=== PATIENT | male | born 1995 | race African-American/Black ===

== ENCOUNTER 2018-12-28 17:19 | Inpatient (IN) ==
[2018-12-28] MEDS ORDERED: cefTRIAXone 1,000 MG in Water for inj. (sterile) 20 ML 10 ML IVP ONE (20:17)
[2018-12-28] MEDS ORDERED: Ketorolac 15 MG/ML VIAL IVP ONE (20:18)
--- NOTE | 2018-12-28 20:22 | Emergency Department Note ---
Disposition Clinical Impression: Swelling of lower leg, Leukocytosis Cellulitis Qualifiers: Site of cellulitis: extremity Site of cellulitis of extremity: lower extremity Laterality: left Qualified Code(s): L03.116 - Cellulitis of left lower limb Disposition: Admitted As Inpatient Condition: Fair Referrals: NONE,PCP [Primary Care Provider] - Forms: ED Satisfaction Letter Time of Disposition: 21:06 Extremity Problem HPI - General Chief complaint: ED Extremity Problem,Nontraumatic Stated complaint: LLE Swollen / Painful Time Seen by Provider: 12/28/18 20:02 Source: patient Mode of arrival: ambulatory Limitations: no limitations Nursing Notes Reviewed: Yes Vital Signs Reviewed: Yes - History of Present Illness HPI Narrative: 23-year-old otherwise healthy male patient for evaluation of left lower leg swelling concerns of infection. Patient states he left the hospital because they were not addressing his pain. Patient states he was admitted for 2 days. Notes injury to the left lower tremor he was bumping it on blessing beam on a flat bed. Patient noted swelling since then with erythema. Patient also noted some fevers. Patient denies history of IV drug use. Patient denies any other symptoms besides pain swelling and redness of left lower cavity. Neurovascularly intact. Patient can move his lower leg. States that he is not currently on any antibiotics. Pain Scale: 8 - Related Data Home Medications Medication Instructions Recorded Confirmed No Known Home Drugs 05/18/17 08/10/18 Allergies Allergy/AdvReac Type Severity Reaction Status Date / Time No Known Allergies Allergy Verified 07/10/17 17:49 All systems ED: reviewed and negative except as stated. Constitutional: Denies: fever Gastrointestinal: Denies: abdominal pain, nausea, vomiting Past Medical History - Past Medical History Source: patient Medical history: Reports: GERD Surgical history: Reports: orthopedic, other, tonsillectomy, other Psychiatric history: Reports: anxiety, bipolar, depression, other - Social History Smoking Status: Current every day smoker Smokeless Tobacco Status: No Alcohol use: Reports: none Drug use: Reports: none Physical Exam - General Limitations: no limitations General appearance: alert, in no apparent distress - Head Head exam: atraumatic, normocephalic, normal inspection - Eye Eye exam: Present: normal appearance, PERRL, EOMI - ENT ENT exam: normal exam - Neck Neck exam: Present: normal inspection - Chest Chest inspection: Present: normal inspection - Respiratory Respiratory exam: Present: normal lung sounds bilaterally - Cardiovascular Cardiovascular exam: Present: regular rate, normal rhythm, normal heart sounds - Abdominal Exam Abdominal exam: Present: soft, Non-Tender - Expanded Lower Extremity Exam Hip/Pelvis exam: Present: normal inspection, full ROM. Absent: tenderness Upper leg exam: Present: normal inspection, full ROM. Absent: tenderness Knee exam: Present: normal inspection, full ROM. Absent: tenderness Lower leg exam: Present: tenderness, swelling, erythema. Absent: crepitus Ankle exam: Present: tenderness, swelling Foot/toe exam: Present: normal inspection, tenderness, swelling Neurovascular/Tendon exam: Present: normal capillary refill, pulse deficit - Back Exam Back exam: Present: normal inspection - Neurological Exam Neurological exam: Present: alert - Skin Skin exam: Present: warm, dry, intact, normal color Course Course Narrative: Patient seen and examined. Patient does have radiology report documenting a CT of the left lower extremity with IV contrast which showed large amount of diffuse edema-like stranding and subcutaneous fat lower leg ankle and dorsum of the and full thickening of the skin anterior to level of the mid tibial diaphysis. There are no soft tissue abscesses gas or evidence of osteo-seen. We will attempt to gather further records from [facility]. Patient will require IV antibiotics admission. Basic labs and anti-inflammatories. - Reevaluation(s) Reevaluation #1: Patient's records reviewed. Patient does have CBC and lites lites ordered which showed a leukocytosis of 20,000 yesterday. Patient's lactate normal. Time: 21:05 Vital Signs Temperature 98.0 F 12/28/18 17:25 Pulse Rate 96 12/28/18 17:25 Respiratory Rate 18 12/28/18 17:25 Blood Pressure 127/78 12/28/18 17:25 O2 Sat by Pulse Oximetry 98 12/28/18 17:25 Temperature 98.0 F 12/28/18 17:25 Pulse Rate 96 12/28/18 17:25 Respiratory Rate 18 12/28/18 17:25 Blood Pressure 127/78 12/28/18 17:25 O2 Sat by Pulse Oximetry 98 12/28/18 17:25 Oxygen Delivery Oxygen Delivery Room Air Extremity Problem, Nontraumati - [facility] Narrative Medical decision making narrative: Patient presents for signs of infection of his left lower cavity. It had CT imaging report obtained recently which shows consistent severe cellulitis of left lower cavity with no soft tissue necrotizing infection. Patient also had labs which showed leukocytosis and concerns for infection. Patient on exam does clinically have cellulitis. Soft compartments. Patient was covered with broad-spectrum antibiotics. Patient did get blood cultures. Imaging of left lower britt many was not obtained in the ED. Patient also had a history of reported THE LOWER LEG WELL. PATIENT WAS TREATED WITH MULTIMODAL PAIN THERAPY IN THE ED. PATIENT BE ADMITTED TO THE HOSPITALIST FOR CONTINUED EVALUAT ION. - Lab Data Lab results reviewed: Yes I reviewed the patient's lab results. Result diagrams: 12/28/18 20:55 12/28/18 20:55 Lab Results 12/28/18 12/28/18 12/28/18 Range/Units 20:55 20:55 21:27 WBC 27.2 H (4.3-11.1) K/mcL RBC 4.38 (4.19-5.50) M/mcL Hgb 13.1 (12.9-16.9) g/dL Hct 40.2 (37.5-50.1) % MCV 91.8 (83.0-100.0) fL MCH 29.9 (28.0-33.3) pg MCHC 32.6 (31.6-35.5) g/dL RDW 13.3 (11.5-14.5) % Plt Count 341 (140-400) K/mcL MPV 8.8 L (9.4-12.4) fL Seg Neutrophils % 63.0 % Band Neutrophils % 19.0 H (0-4) % Lymphocytes % 10.0 % Monocytes % 7.0 % Eosinophils % 1.0 % Neutrophils # 22.3 H (1.6-8.9) K/mcL Lymphocytes # 2.7 (0.6-4.6) K/mcL Monocytes # 1.9 H (0.0-1.3) K/mcL Eosinophils # 0.3 (0.0-0.6) K/mcL Reactive Lymphocytes Present A (Not Present) Toxic Granulation Present A (Not Present) Platelet Estimate Normal (Normal) Sodium 139 (136-145) mEq/L Potassium 3.7 (3.5-5.1) mEq/L Chloride 103 (98-107) mEq/L Carbon Dioxide 28 (23-29) mEq/L BUN 8 (6-20) mg/dL Creatinine 0.90 (0.70-1.30) mg/dL Est GFR ( Amer) > 60 (> 60) Est GFR (Non-Af Amer) > 60 (> 60) BUN/Creatinine Ratio 9 (6-26) Glucose 112 H (70-105) mg/dL Calculated Osmolality 287 (280-300) Lactic Acid 1.4 (0.5-2.2) mmol/L Calcium 9.1 (8.6-10.3) mg/dL Total Bilirubin 0.3 (0.3-1.0) mg/dL AST 19 (13-39) Units/L ALT 20 (7-52) Units/L Alkaline Phosphatase 97 (34-104) Units/L Serum Total Protein 7.4 (6.4-8.9) g/dL Albumin 3.3 L (3.5-5.7) g/dL Globulin 4.1 H (2.4-3.5) g/dL Albumin/Globulin Ratio 0.8 L (1.1-2.2) - Radiology Data Radiology results reviewed: Yes I reviewed the patient's radiology results. S.B.A.Diana - S.Estella.AEren Situation: Demographics Background: Presenting Complaint Assessment: Vital Signs, Course and respsone to treatment, Patient/Family Exp ectation Recommendation: Barrier(s) to disposition, Recommendation based on pending studies, treatments, or consults S.B.A.RDavid Report Given to: Dr. Halle HendersonAEren Repor Time: 21:06 Attestation Statement - Attestation Attestation: I, Shalom Landeros DO, examined this patient [id number] and my medical decision-making was reviewed with Dr. Pradeep Puentes, Resident Physician. I agree with the documented findings, disposition and treatment plan as described except to the extent set forth below. I personally supervised and was present for the marcial/critical portions of the procedures completed by the resident documented below. Please see my progress notes for details.
[2018-12-28] MEDS ORDERED: 0.9 % Sodium Chloride 1,000 ML IVC ONE (21:03)
[2018-12-28 21:10] LABS: Hemoglobin 13.1 g/dL (12.9-16.9); Mean Platelet Volume 8.8 fL (9.4-12.4); Red Cell Distribution Width 13.3 % (11.5-14.5)
[2018-12-28 21:11] LABS: Hematocrit 40.2 % (37.5-50.1); Mean Corpuscular HGB Conc 32.6 g/dL (31.6-35.5); Mean Corpuscular Hemoglobin 29.9 pg (28.0-33.3); Mean Corpuscular Volume 91.8 fL (83.0-100.0); Platelet Count 341 K/mcL (140-400); Red Blood Count 4.38 M/mcL (4.19-5.50)
[2018-12-28] MEDS ORDERED: Piperacillin/Tazobactam 3.375 GM in Water for inj. (sterile) 20 ML 20 ML IVP ONE (21:20)
[2018-12-28] MEDS ORDERED: Piperacillin/Tazobactam 3.375 GM in 0.9 % Sodium Chloride Mini Bag 100 ML IVPB ONE (21:25)
[2018-12-28] MEDS ORDERED: Tdap (Boostrix) Vaccine 0.5 ML SYRINGE IM ONE (21:26)
[2018-12-28 21:27] LABS: Alanine Aminotransferase 20 Units/L (7-52); Albumin 3.3 g/dL (3.5-5.7); Albumin/Globulin Ratio 0.8 (1.1-2.2); Alkaline Phosphatase 97 Units/L (34-104); Aspartate Amino Transferase 19 Units/L (13-39); BUN/Creatinine Ratio 9 (6-26); Bilirubin,Total 0.3 mg/dL (0.3-1.0); Blood Urea Nitrogen 8 mg/dL (6-20); Calcium 9.1 mg/dL (8.6-10.3); Carbon Dioxide 28 mEq/L (23-29); Chloride 103 mEq/L (98-107); Globulin 4.1 g/dL (2.4-3.5); Glucose 112 mg/dL (70-105); Osmolality,Calculated 287 (280-300); Potassium 3.7 mEq/L (3.5-5.1); Sodium 139 mEq/L (136-145); Total Protein 7.4 g/dL (6.4-8.9); eGFR For Non-African Americans > 60 (> 60)
--- NOTE | 2018-12-28 21:30 | Emergency Department Note ---
Disposition Clinical Impression: Swelling of lower leg, Leukocytosis Cellulitis Qualifiers: Site of cellulitis: extremity Site of cellulitis of extremity: lower extremity Laterality: left Qualified Code(s): L03.116 - Cellulitis of left lower limb Disposition: Admitted As Inpatient Condition: Fair Referrals: NONE,PCP [Primary Care Provider] - Forms: ED Satisfaction Letter Time of Disposition: 21:38 General Adult HPI - General Chief complaint: ED Extremity Problem,Nontraumatic Stated complaint: LLE Swollen / Painful Time Seen by Provider: 12/28/18 20:02 Source: patient Mode of arrival: ambulatory Limitations: no limitations - History of Present Illness Pain Scale: 8 - Related Data Home Medications Medication Instructions Recorded Confirmed No Known Home Drugs 05/18/17 08/10/18 Allergies Allergy/AdvReac Type Severity Reaction Status Date / Time No Known Allergies Allergy Verified 07/10/17 17:49 Constitutional: Denies: fever Gastrointestinal: Denies: abdominal pain, nausea, vomiting Past Medical History - Past Medical History Medical history: Reports: GERD Surgical history: Reports: orthopedic, other, tonsillectomy, other Psychiatric history: Reports: anxiety, bipolar, depression, other - Social History Smoking Status: Current every day smoker Smokeless Tobacco Status: No Alcohol use: Reports: none Drug use: Reports: none Physical Exam - General Limitations: no limitations General appearance: alert, in no apparent distress Course Vital Signs Temperature 98.0 F 12/28/18 17:25 Pulse Rate 96 12/28/18 17:25 Respiratory Rate 18 12/28/18 17:25 Blood Pressure 127/78 12/28/18 17:25 O2 Sat by Pulse Oximetry 98 12/28/18 17:25 Temperature 98.0 F 12/28/18 17:25 Pulse Rate 96 12/28/18 17:25 Respiratory Rate 18 12/28/18 17:25 Blood Pressure 127/78 12/28/18 17:25 O2 Sat by Pulse Oximetry 98 12/28/18 17:25 Oxygen Delivery Oxygen Delivery Room Air Medical Decision Making - Lab Data Result diagrams: 12/28/18 20:55 12/28/18 20:55 Lab Results 12/28/18 12/28/18 12/28/18 Range/Units 20:55 20:55 21:27 WBC 27.2 H (4.3-11.1) K/mcL RBC 4.38 (4.19-5.50) M/mcL Hgb 13.1 (12.9-16.9) g/dL Hct 40.2 (37.5-50.1) % MCV 91.8 (83.0-100.0) fL MCH 29.9 (28.0-33.3) pg MCHC 32.6 (31.6-35.5) g/dL RDW 13.3 (11.5-14.5) % Plt Count 341 (140-400) K/mcL MPV 8.8 L (9.4-12.4) fL Seg Neutrophils % 63.0 % Band Neutrophils % 19.0 H (0-4) % Lymphocytes % 10.0 % Monocytes % 7.0 % Eosinophils % 1.0 % Neutrophils # 22.3 H (1.6-8.9) K/mcL Lymphocytes # 2.7 (0.6-4.6) K/mcL Monocytes # 1.9 H (0.0-1.3) K/mcL Eosinophils # 0.3 (0.0-0.6) K/mcL Reactive Lymphocytes Present A (Not Present) Toxic Granulation Present A (Not Present) Platelet Estimate Normal (Normal) Sodium 139 (136-145) mEq/L Potassium 3.7 (3.5-5.1) mEq/L Chloride 103 (98-107) mEq/L Carbon Dioxide 28 (23-29) mEq/L BUN 8 (6-20) mg/dL Creatinine 0.90 (0.70-1.30) mg/dL Est GFR ( Amer) > 60 (> 60) Est GFR (Non-Af Amer) > 60 (> 60) BUN/Creatinine Ratio 9 (6-26) Glucose 112 H (70-105) mg/dL Calculated Osmolality 287 (280-300) Lactic Acid 1.4 (0.5-2.2) mmol/L Calcium 9.1 (8.6-10.3) mg/dL Total Bilirubin 0.3 (0.3-1.0) mg/dL AST 19 (13-39) Units/L ALT 20 (7-52) Units/L Alkaline Phosphatase 97 (34-104) Units/L Serum Total Protein 7.4 (6.4-8.9) g/dL Albumin 3.3 L (3.5-5.7) g/dL Globulin 4.1 H (2.4-3.5) g/dL Albumin/Globulin Ratio 0.8 L (1.1-2.2) Attestation Statement - Attestation Attestation: I, Shalom Landeros DO, examined this patient [id number] and my medical decision-making was reviewed with Dr. Pradeep Puentes, Resident Physician. I agree with the documented findings, disposition and treatment plan as described except to the extent set forth below. I personally supervised and was present for the marcial/critical portions of the procedures completed by the resident documented below. Please see my progress notes for details. 23-year-old male presents emergency room after being an outside facility AGAINST MEDICAL ADVICE. Patient is admitted for cellulitis secondary to an abrasion to the anterior aspect of the britt 5 days ago. Patient thought that they provided with tetanus shot. The mother is concerned that he did not receive one. She thinks it has been almost 6 years since he received a tetanus shot. Records will be collected and reviewed. Patient is denying chest pain or shortness of breath. He has not had any fevers or chills. The pain and swelling has gone down significantly since his initial presentation to the hospital. Vital signs are stable presentation. Patient is alert and oriented. Lungs are clear heart is regular. Abdomen is soft. Right lower extremity is uninvolved. Left lower extremity has significant swelling and redness to the posterior aspect the leg down into the foot from the midshaft of the femur distally. Patient does think that he had an ultrasound completed to rule out deep venous thrombosis at the outside facility. Attempted review the records to confirm this prior to i maging. CT with IV contrast the leg was also completed showing no acute signs of infection or compartment related issues but significant amounts of cellulitis and subcutaneous swelling. Patient's compartments are at this time are soft. Pulses are intact to the distal extremity. Sensation is getting better. Skin is wrinkled at this time secondary to fluid leaving the lower extremity. Patient will most certainly require admission. Oral pain medication along with CBC chemistry blood cultures and antibiotic regimen will be started here. No repeat imaging noted or needed at this time. Disposition to be determined. See detailed documentation the physical exam, medical intervention, medical decision-making disposition the resident physician's note. No critical care applied the patient's treatment course at this time. 2100 Patient was discussed with the on-call hospitalist Dr. helton. He came down and evaluated the patient the bedside and agreed with the intervention at this time. IV vancomycin and Zosyn order this time for appropriate coverage lower extremity injury. Patient's white blood cell count is continuing to trend with the most recent WBC at 27,000. The remainder the laboratory workup and evaluation will be completed. And admission process will be established. Patient is otherwise stable. See detailed documentation is conversations.
[2018-12-28] MEDS ORDERED: Ketamine *HR* 17 MG in 0.9 % Sodium Chloride 100 ML IVPB ONE (21:31)
[2018-12-28 21:34] LABS: Eosinophils # 0.3 K/mcL (0.0-0.6); Lymphocytes # 2.7 K/mcL (0.6-4.6); Monocytes # 1.9 K/mcL (0.0-1.3); Neutrophils # 22.3 K/mcL (1.6-8.9); Platelet Estimate Normal (Normal)
[2018-12-28 21:35] LABS: Reactive Lymphocytes Present (Not Present); Toxic Granulation Present (Not Present)
[2018-12-28] MEDS ORDERED: Ondansetron 4 MG/2 ML VIAL IVP PRN (21:40)
[2018-12-28] MEDS ORDERED: Naloxone 0.4 MG/ML INJ IVP PRN (21:41)
[2018-12-28] MEDS ORDERED: Ringers Solution, Lactated 1,000 ML IVC SCH (21:45)
--- NOTE | 2018-12-28 22:30 | Internal Med History&Physical ---
Date of Encounter: 12/28/18 Time of Encounter: 22:29 Internal Medicine - H&P: HPI Chief complaint: leg swelling Admitted From: Home Plans for Post Hospital Care: Home History of present illness: Den Alize Nasir Bess is a 23 year old man with no reported past medical history who suffered a traumatic abrasion to his left britt at work scratching it against a blessing beam about 5 days ago. He then developed pain and swelling of the whole left leg. He went to [facility] yesterday where he was admitted after finding leukocytosis and inflammatory signs on CT; there was no abscess detected. He was started on antibiotics and tells me an ultrasound was done to rule out DVT however he felt as though his pain was not being managed properly and signed out AMA to come here. Here he is seen to have a WBC of 27.2 but normal lactate and hemodynamics. Records were obtained from [facility] to corrob orate the information. He is admitted for further care. Vitals: Reviewed General: Well-developed -[place] male lying comfortably in bed in no acute distress. Skin: Warm and dry. HEENT: Moist mucous membranes. No conjunctivae pallor. Neck: No lymphadenopathy. No JVD. No carotid bruits. No palpable thyroid. Chest: Normal thoracic expansion. Normal breath sounds. Clear to auscultation. Heart: Normal S1 & S2; rhythmic. No rubs or murmurs. Abdomen: Non-distended, soft and non-tender to palpation. No peritoneal reaction. Extremities: Left lower leg is significantly and circumferentially swollen, tense with formation of bullae on the skin; 3-4cm ulceration on the mid-britt with a purulent base covered with dressing. Warm and tender to touch all around. Swelling extends from below the knee down to the foot. Neurological: Awake, alert and oriented to person, place and time. No focal d eficits. Psych: Affect appropriate. Assessment/Plan 1. Sepsis secondary to skin/soft tissue infection: as evidenced by leukocytosis and HR>90 with an infectious source being what appears to be purulent cellulitis. Given the source of the inciting trauma, we will require polymicrobial antibiotic coverage therefore will place on vancomycin and piptazo. He warrants tetanus vaccination if not already given. Will need to corroborate that duplex ultrasonography was done otherwise underlying DVT should still be ruled out. Follow blood cultures, provide analgesics as needed and fluid resuscitation. Keep leg elevated above waist level. Past Med Surg Social Fam HX - Past Medical History Medical history: GERD Additional medical history: insomnia, Psychiatric history: anxiety, bipolar, depression, other - Past Surgical History Surgical History: orthopedic, other, tonsillectomy, other Additional surgical history: right knee surgery, lymph nodes removed from neck 2 015 - Social History Smoking Status: Current every day smoker Smokeless Tobacco Status: No Alcohol use: none Drug use: none Internal Medicine - H&P: Meds No Known Home Drugs 05/18/17 [History] Allergy/AdvReac Type Severity Reaction Status Date / Time No Known Allergies Allergy Verified 07/10/17 17:49 All Systems PM: A 10-system review of systems was performed and is negative for pertinent findings except as documented above in the HPI. Family history remarkable for DVT in mother and brother. - Constitutional Vitals: Temp Pulse Resp BP Pulse Ox 98.0 F 96 18 127/78 98 12/28/18 17:25 12/28/18 17:25 12/28/18 17:25 12/28/18 17:25 12/28/18 17:25 General appearance: Present: A&O X 3 Exam: . Internal Med - H&P Results - Labs CBC & Chem 7: 12/28/18 20:55 12/28/18 20:55 Labs: Short CBC 12/28/18 Range/Units 20:55 WBC 27.2 H (4.3-11.1) K/mcL Hgb 13.1 (12.9-16.9) g/dL Hct 40.2 (37.5-50.1) % Plt Count 341 (140-400) K/mcL Neutrophils # 22.3 H (1.6-8.9) K/mcL BMP 12/28/18 20:55 Sodium 139 Potassium 3.7 Chloride 103 Carbon Dioxide 28 BUN 8 Creatinine 0.90 Glucose 112 H Calcium 9.1 Liver Function 12/28/18 Range/Units 20:55 Total Bilirubin 0.3 (0.3-1.0) mg/dL AST 19 (13-39) Units/L ALT 20 (7-52) Units/L Alkaline Phosphatase 97 (34-104) Units/L Albumin 3.3 L (3.5-5.7) g/dL - Time Spent With Patient Total time spent is greater than 50% in coordination of care (as documented) at patient's floor/unit and/or counseling patient: Greater than 35 minutes
[2018-12-29] MEDS: *HR* Heparin 5,000 UNIT/ML VIAL SQ SCH ×4 (01:38→21:21)
[2018-12-29 06:43] LABS: Basophils # 0.1 K/mcL (0.0-0.2); Basophils % 0.5 %; Eosinophils # 0.6 K/mcL (0.0-0.6); Eosinophils % 2.5 %; Hematocrit 35.8 % (37.5-50.1); Hemoglobin 11.7 g/dL (12.9-16.9); Immature Granulocytes % 3.3 % (0-4); Lymphocytes # 2.7 K/mcL (0.6-4.6); Lymphocytes % 12.2 %; Mean Corpuscular HGB Conc 32.7 g/dL (31.6-35.5); Mean Corpuscular Volume 91.8 fL (83.0-100.0); Mean Platelet Volume 9.4 fL (9.4-12.4); Monocytes # 1.6 K/mcL (0.0-1.3); Monocytes % 7.2 %; Neutrophils # 16.7 K/mcL (1.6-8.9); Platelet Count 332 K/mcL (140-400); Red Cell Distribution Width 13.4 % (11.5-14.5); Segmented Neutrophils % 74.3 %
[2018-12-29 06:48] LABS: Prothrombin Time 11.4 Seconds (9.4-12.1)
[2018-12-29 06:51] LABS: Activated Partial Thrombo Time 22.3 Seconds (26.0-36.0)
[2018-12-29 06:58] LABS: BUN/Creatinine Ratio 10 (6-26); Blood Urea Nitrogen 8 mg/dL (6-20); Calcium 8.4 mg/dL (8.6-10.3); Carbon Dioxide 27 mEq/L (23-29); Chloride 106 mEq/L (98-107); Glucose 139 mg/dL (70-105); Osmolality,Calculated 295 (280-300); Potassium 3.4 mEq/L (3.5-5.1); Sodium 142 mEq/L (136-145); eGFR For Non-African Americans > 60 (> 60)
[2018-12-29] MEDS: 0.9 % Sodium Chloride 1,000 ML IVC SCH ×2 (09:05→21:20)
[2018-12-29] MEDS: Piperacillin/Tazobactam 3.375 GM in 0.9 % Sodium Chloride Mini Bag 100 ML IVPB SCH ×2 (09:07→16:25)
--- NOTE | 2018-12-29 11:29 | Internal Med Progress Note ---
Hospitalist Progress Note - Encounter Date of Encounter: 12/29/18 Time of Encounter: 11:26 - Subjective Interval History: Evaluated patient earlier today. Patient was very somnolent and difficult to awake. His mother present at bedside she states that this is usually his baseline. No fever reported overnight. No nausea or vomiting. Continues to have swelling in his left lower extremity. - Exam Vitals: Temp Pulse Resp BP Pulse Ox 97.8 F 83 16 130/77 96 12/29/18 10:24 12/29/18 10:24 12/29/18 10:24 12/29/18 10:12/29/18 10:24 Exam: General: Patient is somnolent and difficult to awake and answer questions ENT: Mucous membranes moist Respiratory: Good respiratory effort. Normal breath sounds. No wheezing or crackles. Cardiovascular: Regular rate and rhythm. s1 and s2 normal No clicks, rubs, gallops, or murmurs. Abdomen: Abdomen is soft, nontender. Bowel sounds are present Musculoskeletal: Swelling and erythema noted on the left lower extremity extending up to the knee. Blisters and ulceration noted on the anterior britt. Unable to appreciate tenderness as patient is very somnolent. Skin: As described above Neuro: Somnolent. Unable to assess - Assessment and Plan (1) Sepsis Current Visit: Yes Status: Suspected (2) Cellulitis Current Visit: Yes Status: Acute DVT Prophylaxis: On subcutaneous heparin - Summary of Assessment and Plan Summary of Assessment and Plan: Sepsis related to cellulitis and soft tissue infection involving the left lower extremity: Continue IV antibiotics. Will review records from [facility] as these are not available today when I evaluated patient. We will check CPK. High risk for complications including compartment syndrome. Monitor vital signs closely. - Time Spent with Patient Total time spent is greater than 50% in coordination of care (as documented) at patient's floor/unit and/or counseling patient: Internal Medicine: Result - Labs CBC & Chem 7: 12/29/18 05:11 12/29/18 05:11 Labs: Short CBC 12/28/18 12/29/18 Range/Units 20:55 05:11 WBC 27.2 H 22.4 H (4.3-11.1) K/mcL Hgb 13.1 11.7 L (12.9-16.9) g/dL Hct 40.2 35.8 L (37.5-50.1) % Plt Count 341 332 (140-400) K/mcL Neutrophils # 22.3 H 16.7 H (1.6-8.9) K/mcL BMP 12/28/18 12/29/18 20:55 05:11 Sodium 139 142 Potassium 3.7 3.4 L Chloride 103 106 Carbon Dioxide 28 27 BUN 8 8 Creatinine 0.90 0.77 Glucose 112 H 139 H Calcium 9.1 8.4 L Liver Function 12/28/18 Range/Units 20:55 Total Bilirubin 0.3 (0.3-1.0) mg/dL AST 19 (13-39) Units/L ALT 20 (7-52) Units/L Alkaline Phosphatase 97 (34-104) Units/L Albumin 3.3 L (3.5-5.7) g/dL - ABG Interpretation ABG results: PT/INR, D-dimer PT 11.4 Seconds (9.4-12.1) 12/29/18 05:11 Consult Discharge Plan - Plan Referrals: NONE,PCP [Primary Care Provider] - (1) Sepsis Qualifiers: Sepsis type: methicillin resistant Staphylococcus aureus Qualified Code(s): A41.02 - Sepsis due to Methicillin resistant Staphylococcus aureus (2) Cellulitis Qualifiers: Site of cellulitis: extremity Site of cellulitis of extremity: lower extremity Laterality: left Qualified Code(s): L03.116 - Cellulitis of left lower limb
[2018-12-29] MEDS: *HR* OxyCODONE Immed Rel 5 MG TABLET PO PRN ×2 (12:38→18:51)
[2018-12-29 13:15] LABS: Amphetamine Screen,Urine Positive ng/mL (Cutoff=1000); Barbiturate Screen,Urine Negative ng/mL (Cutoff=200); Benzodiazepines Screen,Urine Negative ng/mL (Cutoff=200); Cannabinoid Screen,Urine Positive ng/mL (Cutoff = 50); Cocaine Screen,Urine Negative ng/mL (Cutoff= 300); Opiate Screen,Urine Positive ng/mL (Cutoff=300); Phencyclidine Screen,Urine Negative ng/mL (Cutoff=25)
[2018-12-29] MEDS: Ketorolac 30 MG/ML VIAL IVP PRN (14:32)
[2018-12-30] MEDS: Piperacillin/Tazobactam 3.375 GM in 0.9 % Sodium Chloride Mini Bag 100 ML IVPB SCH ×3 (00:08→16:20)
[2018-12-30] MEDS: Acetaminophen 325 MG TABLET PO PRN ×2 (03:01→22:07)
[2018-12-30] MEDS: *HR* OxyCODONE Immed Rel 5 MG TABLET PO PRN ×3 (03:48→19:29)
[2018-12-30] MEDS: *HR* Heparin 5,000 UNIT/ML VIAL SQ SCH ×2 (06:16→12:59)
[2018-12-30] MEDS: 0.9 % Sodium Chloride 1,000 ML IVC SCH ×2 (08:32)
[2018-12-30 10:57] LABS: Basophils # 0.1 K/mcL (0.0-0.2); Basophils % 0.4 %; Eosinophils # 0.5 K/mcL (0.0-0.6); Eosinophils % 2.3 %; Hematocrit 34.5 % (37.5-50.1); Hemoglobin 11.4 g/dL (12.9-16.9); Immature Granulocytes % 3.2 % (0-4); Lymphocytes % 14.4 %; Mean Corpuscular Hemoglobin 29.9 pg (28.0-33.3); Mean Corpuscular Volume 90.6 fL (83.0-100.0); Mean Platelet Volume 9.3 fL (9.4-12.4); Monocytes # 1.6 K/mcL (0.0-1.3); Monocytes % 7.6 %; Platelet Count 327 K/mcL (140-400); Red Blood Count 3.81 M/mcL (4.19-5.50); Red Cell Distribution Width 13.5 % (11.5-14.5); Segmented Neutrophils % 72.1 %
--- NOTE | 2018-12-30 14:22 | Internal Med Progress Note ---
Hospitalist Progress Note - Encounter Date of Encounter: 12/30/18 Time of Encounter: 10:40 - Subjective Interval History: Patient is awake and alert. Pain in his left leg remained stable. Denies any fevers or chills. No pain with movement around his ankle or knee. He has had some drainage around his anterior britt. - Exam Vitals: Temp Pulse Resp BP Pulse Ox 98.3 F 67 18 147/84 97 12/30/18 11:08 12/30/18 11:08 12/30/18 11:08 12/30/18 11:08 12/30/18 11:08 Exam: General: Patient is alert, mild distress, oriented x 3 ENT: Mucous membranes moist Respiratory: Good respiratory effort. Normal breath sounds. No wheezing or crackles. Cardiovascular: Regular rate and rhythm. s1 and s2 normal No clicks, rubs, gallops, or murmurs. No pedal edema Abdomen: Abdomen is soft, nontender. Bowel sounds are present Musculoskeletal: Spontaneously moving all extremities, left lower extremity continues to be swollen with drainage noted on the anterior britt area currently bandaged. Good pedal pulses. No signs of worsening pain with passive motion of knee and ankle joints. Skin: warm, dry, intact. Neuro: Alert oriented x 3 normal cranial nerves, no focal deficits - Assessment and Plan (1) Sepsis Current Visit: Yes Status: Suspected (2) Cellulitis Current Visit: Yes Status: Acute DVT Prophylaxis: Continue subcutaneous heparin - Summary of Assessment and Plan Summary of Assessment and Plan: Sepsis related to cellulitis and soft tissue infection involving the left lower extremity: Reviewed records from [facility] Reviewed CT scan findings. Discussed with orthopedics. Continue current antibiotics. No signs of compartment syndrome at this time but patient remains at high risk for this. Consult wound care to help with local drainage. Pain control with Roxicodone every 6 hours as needed. Will stop IV fluids as patient is tolerating oral diet well. Monitor renal function while patient is on IV vancomycin. - Time Spent with Patient Total time spent is greater than 50% in coordination of care (as documented) at patient's floor/unit and/or counseling patient: Internal Medicine: Result - Labs CBC & Chem 7: 12/30/18 10:01 12/29/18 05:11 Labs: Short CBC 12/30/18 Range/Units 10:01 WBC 20.8 H (4.3-11.1) K/mcL Hgb 11.4 L (12.9-16.9) g/dL Hct 34.5 L (37.5-50.1) % Plt Count 327 (140-400) K/mcL Neutrophils # 15.0 H (1.6-8.9) K/mcL - ABG Interpretation ABG results: PT/INR, D-dimer PT 11.4 Seconds (9.4-12.1) 12/29/18 05:11 Consult Discharge Plan - Plan Referrals: NONE,PCP [Primary Care Provider] - (1) Sepsis Qualifiers: Qualified Code(s): A41.02 - Sepsis due to Methicillin resistant Staphylococcus aureus (2) Cellulitis Qualifiers: Qualified Code(s): L03.116 - Cellulitis of left lower limb
--- NOTE | 2018-12-30 14:23 | Orthopedic Consult Note ---
Date of Encounter: 12/30/18 Time of Encounter: 10:15 Assessment and Plan (1) Cellulitis Current Visit: Yes Status: Acute Qualifiers: Site of cellulitis: extremity Site of cellulitis of extremity: lower extremity Laterality: left Qualified Code(s): L03.116 - Cellulitis of left lower limb (2) Swelling of lower leg Current Visit: Yes Status: Acute History of Present Illness Chief complaint: left leg pain/infection HPI: Mr. Nathen Bess is a 23 year old male presents to [facility] for left leg swelling. Per patient and report patient was seen at [place] and signed out AMA. 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 His states he didn't think much of it at first and waited per patient's fianceGemma at bedside, about a week to be seen. Patient records reviewed from [place] 12/[address] lower extremity demonstrating stranding and swelling with focal thickening at midshaft tibia - this is consistent with the same area of open and draining on exam. On exam patient resting comfortably supine in bed - fiance at bedside. Swelling noted to left lower leg - 3+ pitting on exam from knee distally. No significant erythema noted. Saturated dressing noted to anterior britt. Dressings taken down revealing draining bullae with thick drainage centrally appx 1cm square. No georgina pus noted on examination. Patient is exquisitely t babak to palpation of the anterior britt. Mild calf pain to palpation. Motion to knee and ankle and toes intact. Neurovascularly intact. Cap refill intact <2s. Ankle and foot distal to wound warm and appropriately colored. Posterior tibial pulses and pedal pulses are intact though faint secondary to significant pitting edema. Case reviewed with Dr. Gibson Though patient had CT done 12/27 - at this time very low suspicion of compartment syndrome however patient does have a large open wound to the anterior britt and significant swelling. Patient definitely appears to have cellulitis though no di screte abscess is noted on exam. Concern for deeper abscess exists though at present wound is draining appropriately and swelling is reducing per patient with antibiotic adminstration. Patient educated on need for IV antibiotics and he verbalized understanding. Dressing was changed by this provider at time of visit - non-adherent pad x 3 applied, 2 -10pk gauze applied and 3 ABD with paper tape gently applied. Will consult wound care for assistance in managing the wound. In addition, if swelling and clinical picture is not improving in the next 24 hours would strongly recommend repeat CT. Patent currently awaiting blood work results. Will reevaluate in the morning for clinical change. Dr. Gomez made aware of the above recommendations. Past Med Surg Social Fam HX - Past Medical History Medical history: GERD Additional medical history: insomnia, Psychiatric history: anxiety, bipolar, depression, other - Past Surgical History Surgical History: orthopedic, other, tonsillectomy, other Additional surgical history: right knee surgery, lymph nodes removed from neck 2015 - Social History Smoking Status: Current every day smoker Smokeless Tobacco Status: No Alcohol use: none Drug use: none Medications and Allergies Loratadine [Claritin] 10 mg PO 1-2XD PRN 12/30/18 [History] Allergy/AdvReac Type Severity Reaction Status Date / Time No Known Allergies Allergy Verified 12/30/18 12:54 All Systems Reviewed: The remainder of the systems were reviewed and are negative Physical Exam - Constitutional Vitals: Temp Pulse Resp BP Pulse Ox 98.3 F 67 18 147/84 97 12/30/18 11:08 12/30/18 11:08 12/30/18 11:08 12/30/18 11:08 12/30/18 11:08 Results - Labs Result Diagrams: 12/30/18 10:01 12/29/18 05:11 Labs: Abnormal lab results WBC 20.8 K/mcL (4.3-11.1) H 12/30/18 10:01 RBC 3.81 M/mcL (4.19-5.50) L 12/30/18 10:01 Hgb 11.4 g/dL (12.9-16.9) L 12/30/18 10:01 Hct 34.5 % (37.5-50.1) L 12/30/18 10:01 MPV 9.3 fL (9.4-12.4) L 12/30/18 10:01 19.0 % (0-4) H 12/28/18 20:55 15.0 K/mcL (1.6-8.9) H 12/30/18 10:01 1.6 K/mcL (0.0-1.3) H 12/30/18 10:01 Present (Not Present) A 12/28/18 20:55 Present (Not Present) A 12/28/18 20:55 APTT 22.3 Seconds (26.0-36.0) L 12/29/18 05:11 Potassium 3.4 mEq/L (3.5-5.1) L 12/29/18 05:11 Glucose 139 mg/dL (70-105) H 12/29/18 05:11 Calcium 8.4 mg/dL (8.6-10.3) L 12/29/18 05:11 3.3 g/dL (3.5-5.7) L 12/28/18 20:55 4.1 g/dL (2.4-3.5) H 12/28/18 20:55 0.8 (1.1-2.2) L 12/28/18 20:55 Positive ng/mL (Mdbegs=566) H 12/29/18 12:49 Ur Amphetamines Screen Positive ng/mL (Radzzu=9021) H 12/29/18 12:49 U Marijuana (THC) Screen Positive ng/mL (Cutoff = 50) H 12/29/18 12:49 H & H 12/30/18 Range/Units 10:01 Hgb 11.4 L (12.9-16.9) g/dL Hct 34.5 L (37.5-50.1) % All other labs normal. Consult Discharge Plan - Plan Referrals: NONE,PCP [Primary Care Provider] -
[2018-12-31] MEDS: *HR* Heparin 5,000 UNIT/ML VIAL SQ SCH ×3 (00:12→13:05)
[2018-12-31] MEDS: Piperacillin/Tazobactam 3.375 GM in 0.9 % Sodium Chloride Mini Bag 100 ML IVPB SCH ×2 (01:35→09:28)
[2018-12-31] MEDS: Ketorolac 30 MG/ML VIAL IVP PRN (04:25)
[2018-12-31] MEDS: *HR* OxyCODONE Immed Rel 5 MG TABLET PO PRN (09:25)
[2018-12-31 11:28] LABS: Basophils # 0.1 K/mcL (0.0-0.2); Basophils % 0.7 %; Eosinophils # 0.3 K/mcL (0.0-0.6); Eosinophils % 1.5 %; Hematocrit 40.3 % (37.5-50.1); Immature Granulocytes % 4.3 % (0-4); Lymphocytes # 2.5 K/mcL (0.6-4.6); Lymphocytes % 11.7 %; Mean Corpuscular Hemoglobin 29.4 pg (28.0-33.3); Mean Corpuscular Volume 89.2 fL (83.0-100.0); Monocytes # 1.1 K/mcL (0.0-1.3); Monocytes % 5.1 %; Neutrophils # 16.4 K/mcL (1.6-8.9); Platelet Count 360 K/mcL (140-400); Red Blood Count 4.52 M/mcL (4.19-5.50); Red Cell Distribution Width 13.5 % (11.5-14.5); Segmented Neutrophils % 76.7 %
[2018-12-31] MEDS ORDERED: Silvasorb 44.4 ML TUBE TP SCH (11:45)
[2018-12-31 12:10] VITALS: BP 150/86
[2018-12-31 12:15] LABS: BUN/Creatinine Ratio 16 (6-26); Blood Urea Nitrogen 13 mg/dL (6-20); Calcium 8.8 mg/dL (8.6-10.3); Carbon Dioxide 28 mEq/L (23-29); Chloride 107 mEq/L (98-107); Glucose 140 mg/dL (70-105); Osmolality,Calculated 294 (280-300); Potassium 4.2 mEq/L (3.5-5.1); Sodium 141 mEq/L (136-145); eGFR For Non-African Americans > 60 (> 60)
[2018-12-31 14:10] LABS: Hemoglobin 13.3 g/dL (12.9-16.9)
[2018-12-31] MEDS ORDERED: Nicotine 21 MG PATCH.TD24 TD PRN (14:19)
--- NOTE | 2018-12-31 15:38 | Internal Med Progress Note ---
Hospitalist Progress Note - Encounter Date of Encounter: 12/31/18 Time of Encounter: 15:25 - Subjective Interval History: Evaluated patient earlier today. Pain in his left leg is improving. Denies any fevers or chills. No other new complaints at this time. Tolerating diet well. - Exam Vitals: Temp Pulse Resp BP Pulse Ox 99.1 F 50 16 150/86 94 12/31/18 12:06 12/31/18 12:06 12/31/18 12:06 12/31/18 12:12/31/18 12:06 Exam: General: Patient is alert, no acute distress, oriented x 3 ERespiratory: Good respiratory effort. Normal breath sounds. No wheezing or crackles. Cardiovascular: Regular rate and rhythm. s1 and s2 normal No clicks, rubs, gallops, or murmurs. Left pedal edema Abdomen: Abdomen is soft, nontender. Bowel sounds are present Musculoskeletal: Spontaneously moving all extremities, erythema in his left leg has improved. Swelling also improving. Skin: warm, dry, intact. Neuro: Alert oriented x 3 normal cranial nerves, no focal deficits - Assessment and Plan (1) Sepsis Current Visit: Yes Status: Suspected (2) Cellulitis Current Visit: Yes Status: Acute DVT Prophylaxis: Continue subcutaneous heparin - Summary of Assessment and Plan Summary of Assessment and Plan: Sepsis related to cellulitis and soft tissue infection involving the left lower extremity: Patient is clinically getting better. However WBC count trending up now. Discussed with infectious disease. They will evaluate patient. For now continue current antibiotics. Blood cultures have been negative. - Time Spent with Patient Total time spent is greater than 50% in coordination of care (as documented) at patient's floor/unit and/or counseling patient: Internal Medicine: Result - Labs CBC & Chem 7: 12/31/18 11:00 12/31/18 11:00 Labs: Short CBC 12/31/18 Range/Units 11:00 WBC 21.4 H (4.3-11.1) K/mcL Hgb 13.3 D (12.9-16.9) g/dL Hct 40.3 (37.5-50.1) % Plt Count 360 (140-400) K/mcL Neutrophils # 16.4 H (1.6-8.9) K/mcL BMP 12/31/18 11:00 Sodium 141 Potassium 4.2 Chloride 107 Carbon Dioxide 28 BUN 13 Creatinine 0.83 Glucose 140 H Calcium 8.8 - ABG Interpretation ABG results: PT/INR, D-dimer PT 11.4 Seconds (9.4-12.1) 12/29/18 05:11 Consult Discharge Plan - Plan Referrals: Luz Yeh MD [Partnered Physician] - Prescriptions: Sulfamethoxazole/Trimeth DS [Bactrim DS] 1 each PO BID #24 tablet (1) Sepsis Qualifiers: Sepsis type: methicillin resistant Staphylococcus aureus Qualified Code(s): A41.02 - Sepsis due to Methicillin resistant Staphylococcus aureus (2) Cellulitis Qualifiers: Site of cellulitis: extremity Site of cellulitis of extremity: lower extremity Laterality: left Qualified Code(s): L03.116 - Cellulitis of left lower limb
[2018-12-31] MEDS ORDERED: Aminoglycoside Consult 1 EACH MC ONE (15:53)
--- NOTE | 2018-12-31 15:58 | Infectious Disease Consult ---
Infectious Disease-Consult - Encounter Date/Time Date of Encounter: 12/31/18 Time of Encounter: 15:49 - Data of Consult Patient: new to practice Reason for consult: Cellulitis Consult date: 12/31/18 Requesting Physician: Con Neri MD Primary Care Provider: PCP NONE - HPI HPI: Patient is a 24 gentleman who presented to [facility] on 12/28/2018 with cellulitis of the left lower extremity. We are consulted for worsening leukocytosis Briefly patient is a 23-year-old gentleman with past medical history of GERD and multiple psychiatric issues apparently had suffered a traumatic abrasion of his left britt at work again is a blessing be 5 days prior to admission. Patient after that had been and swelling of the whole left leg. Patient went to [facility] where he was evaluated and admitted for cellulitis and started on broad-spectrum antibiotic including vancomycin and Zosyn. Patient apparently si gned out AGAINST MEDICAL ADVICE and then showed up here for evaluation and a later. Since admission patient has been afebrile. Initially he was tachycardic without tachypnea. Presenting labs revealed a WBC of 27.2 with 63% neutrophils and 19% bands. Rest of the labs revealed a BUN 8 creatinine 0.9, normal lactic acid and normal LFTs. A drug screen was positive for opiates, amphetamines and ma rijuana. CT was not done here but there was a CT done at the outside facility. Report from there from 12/27/2018 reveals large amount of diffuse edema and stranding of the subcutaneous fat of the low lower leg ankle and the dorsum of the foot and there appears to be focal thickening of the skin anteriorly at the level of the mid tibial diaphysis. Findings are nonspecific but may be due to cellulitis, lymphedema and underlying venous stasis. No focal soft tissue abscess and no gas and no osteomyelitis. Patient had blood cultures obtained on 12/28/2018 and 2 out of 2 sets are no growth. Patient was started on broad- spectrum antibiotics including vancomycin and Zosyn were asked to evaluate the patient further recommendations. - ROS Review of Systems: 10 point review of systems done, negative other for what mentioned in the history of present illness - Results CBC & Chem 7: 12/31/18 11:00 12/31/18 11:00 - Exam Vitals: Temp Pulse Resp BP Pulse Ox 99.1 F 50 16 150/86 94 12/31/18 12:06 12/31/18 12:06 12/31/18 12:06 12/31/18 12:06 12/31/18 12:06 Exam: GENERAL: Laying in bed, appears comfortable. HEAD: Normocephalic atraumatic EYES: PERRLA, EOMI, no conjunctival hemorrhage, sclera anicteric ENT: Mucous membranes moist, no oral thrush NECK: Supple. No meningeal signs. No masses LUNGS: Chest expanding symmetrically. Lungs sounds audible both lung lim. No wheezing, no rhonchi CV: RRR, S1S2, ABDOMEN: Soft, nontender, nondistended. Bowel sounds audible BACK: No CVA tenderness. Normal inspection. No tenderness over the spine EXTREMITY: Adequate perfusion. No joint effusion. SKIN: Normal color. No rash. NEURO: Awake alert oriented 3. No obvious focal deficit PSYCH: Calm and appropriate. No agitation. Loratadine [Claritin] 10 mg PO 1-2XD PRN 12/30/18 [History] Sulfamethoxazole/Trimeth DS [Bactrim DS] 1 each PO BID #24 tablet 12/31/18 [Rx] Allergy/AdvReac Type Severity Reaction Status Date / Time No Known Allergies Allergy Verified 12/30/18 12:54 - Assessment and Plan (1) Cellulitis Current Visit: Yes Status: Acute Qualifiers: Site of cellulitis: extremity Site of cellulitis of extremity: lower extremity Laterality: left Qualified Code(s): L03.116 - Cellulitis of left lower limb SNOMED Code(s): 724722780 (2) Leukocytosis Current Visit: Yes Status: Acute SNOMED Code(s): 717247540, 764876193 (3) Sepsis Current Visit: Yes Status: Suspected Qualifiers: Sepsis type: methicillin resistant Staphylococcus aureus Qualified Code(s): A41.02 - Sepsis due to Methicillin resistant Staphylococcus aureus SNOMED Code(s): 48483076 Past Med Surg Social Fam HX - Past Medical History Medical history: GERD Additional medical history: insomnia, Psychiatric history: anxiety, bipolar, depression, other - Past Surgical History Surgical History: orthopedic, other, tonsillectomy, other Additional surgical history: right knee surgery, lymph nodes removed from neck 2014 - Social History Smoking Status: Current every day smoker Smokeless Tobacco Status: No Alcohol use: none Drug use: none Consult Discharge Plan - Plan Referrals: Luz Yeh MD [Partnered Physician] - Prescriptions: Sulfamethoxazole/Trimeth DS [Bactrim DS] 1 each PO BID #24 tablet
--- NOTE | 2018-12-31 16:21 | Orthopedics Progress Note ---
Date of Encounter: 12/31/18 Time of Encounter: 12:45 - Assessment and Plan (1) Cellulitis Status: Acute Qualifiers: Site of cellulitis: extremity Site of cellulitis of extremity: lower extremity Laterality: left Qualified Code(s): L03.116 - Cellulitis of left lower limb (2) Swelling of lower leg Status: Acute Subjective Principal diagnosis: left britt pain/swelling Interval history: Patient seen at bedside. Patient resting in bed, fiance and mother at bedside. Admits to improved pain control Swelling noted to be significantly improved. Dressings c/d/i. Motion to knee and ankle and toes intact. Neurovascularly intact. Cap refill intact <2s. Ankle and foot distal to wound warm and appropriately colored. Posterior tibial pulses and pedal pulses are intact though faint secondary to significant pitting edema. No calf tenderness Pitting edema now primarily to mid leg distally 3+. Neurovascularly intact. Awaiting lab results As patient is now improving with swelling there is still concern for deeper infection. If counts remain elevated would recommend further imaging looking for deeper tissue infection. Will continue to follow. History: Mr. Nathen Bess is a 23 year old male presents to [facility] for left leg swelling. Per patient and report patient was seen at [place] and signed out AMA. 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 His states he didn't think much of it at first and waited per patient's fianceGemma at bedside, about a week to be seen. Patient records reviewed from [place] 12/[address] lower extremity demonstrating stranding and swelling with focal thickening at mid tibial diaphysis - this is consistent with the same area of open and draining on exam. Objective Vital signs: Vital Signs Temp Pulse Resp BP Pulse Ox 12/31/18 12:06 99.1 F 50 16 150/86 94 12/31/18 07:43 98.9 F 59 16 143/73 98 12/31/18 03:40 98.9 F 62 15 124/77 95 12/30/18 19:30 99 F 73 14 151/86 98 Intake and Output 12/31/18 12/31/18 12/31/18 07:59 15:59 23:59 Intake Total 1120 / 2080 960 / 2080 Output Total 700 / 700 0 / 700 Balance 420 / 1380 960 / 1380 Intake: IV Fluids 600 / 1200 600 / 1200 Zosyn 3.375 GM In 0.9 % Sodium 100 / 200 100 / 200 Chloride (Mini-Bag +) 100 ML @ 25 mls/hr IVPB Q8HR [facility] Rx#: [id number] Vancocin 1,750 MG In 0.9 % 500 / 1000 500 / 1000 Sodium Chloride 500 ML @ 333.3 mls/hr IVPB Q12H [facility] Rx#: [id number] Oral 520 / 880 360 / 880 Output: Urine 700 / 700 0 / 700 Other: Meal Breakfast Percent of Meal Consumed 0% - Labs CBC & BMP: 12/31/18 11:00 12/31/18 11:00 Labs: Abnormal lab results WBC 21.4 K/mcL (4.3-11.1) H 12/31/18 11:00 RBC 3.81 M/mcL (4.19-5.50) L 12/30/18 10:01 Hgb 11.4 g/dL (12.9-16.9) L 12/30/18 10:01 Hct 34.5 % (37.5-50.1) L 12/30/18 10:01 MPV 9.0 fL (9.4-12.4) L 12/31/18 11:00 Immature Gran % 4.3 % (0-4) H 12/31/18 11:00 19.0 % (0-4) H 12/28/18 20:55 16.4 K/mcL (1.6-8.9) H 12/31/18 11:00 1.6 K/mcL (0.0-1.3) H 12/30/18 10:01 Present (Not Present) A 12/28/18 20:55 Present (Not Present) A 12/28/18 20:55 APTT 22.3 Seconds (26.0-36.0) L 12/29/18 05:11 Potassium 3.4 mEq/L (3.5-5.1) L 12/29/18 05:11 Glucose 140 mg/dL (70-105) H 12/31/18 11:00 POC Glucose 125 mg/dL (70-99) H 12/29/18 21:27 Calcium 8.4 mg/dL (8.6-10.3) L 12/29/18 05:11 3.3 g/dL (3.5-5.7) L 12/28/18 20:55 4.1 g/dL (2.4-3.5) H 12/28/18 20:55 0.8 (1.1-2.2) L 12/28/18 20:55 Positive ng/mL (Stsgui=251) H 12/29/18 12:49 Ur Amphetamines Screen Positive ng/mL (Sndtef=8135) H 12/29/18 12:49 U Marijuana (THC) Screen Positive ng/mL (Cutoff = 50) H 12/29/18 12:49 Consult Discharge Plan - Plan Referrals: Luz Yeh MD [Partnered Physician] - Prescriptions: Sulfamethoxazole/Trimeth DS [Bactrim DS] 1 each PO BID #24 tablet
--- NOTE | 2018-12-31 16:53 | Discharge Summary ---
Orders not resulted at time of discharge: Pending orders 12/28/18 20:55 Culture,Blood [BC] Stat Date of Encounter: 12/31/18 Time of Encounter: 16:51 - Discharge Diagnosis (1) Sepsis Priority: Primary Status: Suspected Qualifiers: Sepsis type: methicillin resistant Staphylococcus aureus Qualified Code(s): A41.02 - Sepsis due to Methicillin resistant Staphylococcus aureus (2) Cellulitis Priority: Secondary Status: Acute Qualifiers: Site of cellulitis: extremity Site of cellulitis of extremity: lower extremity Laterality: left Qualified Code(s): L03.116 - Cellulitis of left lower limb Hospital course: Mr. Nathen Bess is a 23 year old male patient who was hospitalized with cellulitis involving his left lower extremity. Patient was treated with IV a ntibiotics. He had previously left [facility] AGAINST MEDICAL ADVICE after being admitted there for the same problem. When his swelling improved here, his white cell count began to trend up again. As such had recommended that he stay another day to receive IV antibiotics and also consulted infectious disease for recommendations. However patient decided to leave AGAINST MEDICAL ADVICE and has signed necessary and stated he understood the risks including loss of limb and/or . I did send in a prescription for Bactrim in case he decides to continue taking antibiotics and is always welcome to come to the ER to get treated for his cellulitis. Discharge discussed with: patient - Time Spent with Patient Total time spent providing and/or coordinating discharge services: Time spent: Less than 30 minutes (25 min) - Discharge Medications Prescriptions: New Sulfamethoxazole/Trimeth DS [Bactrim DS] 1 each PO BID #24 tablet No Action Loratadine [Claritin] 10 mg PO 1-2XD PRN PRN Reason: Allergy Symptoms Home Medications: Loratadine [Claritin] 10 mg PO 1-2XD PRN 12/30/18 [History] Sulfamethoxazole/Trimeth DS [Bactrim DS] 1 each PO BID #24 tablet 12/31/18 [Rx] Allergies/Adverse Reactions: Allergy/AdvReac Type Severity Reaction Status Date / Time No Known Allergies Allergy Verified 12/30/18 12:54 Date of admission: 12/31/18 15:03 Primary care physician: PCP NONE Consults: 12/29/18 13:52 Consult to Orthopedic Surgery [CONS] Routine Consulting Provider: [facility] Reason for Consult: Left lower extremity cellulitis/ at risk for compartment syndrome Time Notified: 13:52 Call Completed: Yes 12/30/18 14:50 Consult to Wound Care [CONS] Routine Reason for Consult: left anterior britt wound with copious drainage; absorbent dressing placed at present. Time Notified: 14:50 Call Completed: No 12/31/18 14:17 Consult to Infectious Diseases [CONS] Routine Consulting Provider: [facility] Reason for Consult: Cellulitis Time Notified: 14:18 Call Completed: Yes Discharging clinician: Vish Gomez Anticipated date of discharge: 12/31/18 - Constitutional Vitals: Temp Pulse Resp BP Pulse Ox 99.1 F 50 16 150/86 94 12/31/18 12:06 12/31/18 12:06 12/31/18 12:06 12/31/18 12:06 12/31/18 12:06 General appearance: Present: A&O X 3 Exam: . - Extremities Exam Additional comments: Erythema and swelling in his left lower extremity with drainage. Open wound bandaged - Patient Status Disposition: Left Against Medical Advice Condition: Fair - Discharge Instructions Follow Up With: Luz Yeh MD [Partnered Physician] -
== END 2018-12-31 15:54 | disposition left against medical advice (07) | DRG 720 ==
LOC: EMEROOARM 17:19 → 3ANU 17:19
PROVIDERS: ADMIT Internal Medicine; ATTEND Internal Medicine